=== PATIENT | male | born 1965 | race Caucasian/White ===

== ENCOUNTER 2018-04-06 10:11 | Day surgery (SDC) | payer OTHER | END 2018-04-06 16:26 | disposition home or self-care (01) | LOC: AMB-ENDOS 10:11 | DX: D12.4 Benign neoplasm of descending colon (principal); D12.5 Benign neoplasm of sigmoid colon ==

== ENCOUNTER 2018-07-20 09:38 | Day surgery (SDC) | payer OTHER | END 2018-07-20 14:10 | disposition home or self-care (01) | LOC: AMB-ENDOS 09:38 | DX: D13.1 Benign neoplasm of stomach (principal) ==

== ENCOUNTER 2021-03-12 07:38 | Day surgery (SDC) | payer OTHER | END 2021-03-12 16:40 | disposition home or self-care (01) | LOC: AMB-ENDOS 07:38 | PROVIDERS: ATTEND Colon & Rectal Surgery | DX: K63.5 Polyp of colon (principal); K64.0 First degree hemorrhoids; Z20.822 Contact with and (suspected) exposure to COVID-19 ==